=== PATIENT | male | born 1975 | race Caucasian/White ===

== ENCOUNTER 2020-07-11 09:19 | Emergency (ER) | payer BC, OTHER ==
[2020-07-11 10:22] LABS: HEMOGLOBIN 13.4 gm/dl (14.0-17.5); RED BLOOD COUNT 4.48 M/UL (4.20-5.50); WHITE BLOOD COUNT 15.2 K/UL (4.5-11.0)
[2020-07-11 10:42] LABS: BUN/CREATININE RATIO 37 (0-10)
[2020-07-11] MEDS ORDERED: PROTONIX 40 MG40 M1 PO (13:57)
[2020-07-11] MEDS ORDERED: ONDANSETRON ODT4 MG SL (13:57)
== END 2020-07-11 14:00 | disposition left against medical advice (07) ==
LOC: ER1 09:19
PROVIDERS: Physician Assistant
DX: K57.31 Diverticulosis of large intestine without perforation or abscess with bleeding (principal); N28.9 Disorder of kidney and ureter, unspecified; N28.1 Cyst of kidney, acquired; I10 Essential (primary) hypertension; Z79.899 Other long term (current) drug therapy; Z87.11 Personal history of peptic ulcer disease; Z90.49 Acquired absence of other specified parts of digestive tract; Z53.20 Procedure and treatment not carried out because of patient's decision for unspecified reasons
CPT/HCPCS: 80053; 81001; 83690; 85025; 96374; 99284; C9113; Q9967